=== PATIENT | female | born 1970 | race Caucasian/White ===

== ENCOUNTER → 2016-12-09 | Outpatient (CLI) | payer OTHER | LOC: FIMAGING 14:37 | PROVIDERS: ATTEND Obstetrics & Gynecology | DX: Z12.31 Encounter for screening mammogram for malignant neoplasm of breast (principal) | CPT/HCPCS: G0202 ==

== ENCOUNTER 2017-04-11 15:54 | Inpatient (IN) | payer OTHER ==
[2017-04-11] MEDS ORDERED: ONDANSETRON 4 MG/2 ML VIAL ONE ×2 (16:01→19:14)
[2017-04-11] MEDS ORDERED: fentaNYL 100 MCG/2 ML INJ ONE ×2 (16:01→21:52)
[2017-04-11] MEDS ORDERED: fentaNYL 100 MCG/2 ML INJ IVP ONE (16:03)
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
[2017-04-11] MEDS ORDERED: MIDAZOLAM 2 MG/2 ML VIAL ONE (16:14)
[2017-04-11] MEDS ORDERED: MIDAZOLAM 2 MG/2 ML VIAL IVP ONE (16:26)
[2017-04-11] MEDS ORDERED: ONDANSETRON 4 MG/2 ML VIAL IVP ONE (16:26)
--- NOTE | 2017-04-11 16:42 | PDCONSULT ---
[facility]le [facility] Hand Note: Trauma Service Consult Dictated Seth Shelley MD, FACS
--- NOTE | 2017-04-11 16:57 | ASMTLACE ---
ADEN Acuity / Level of Answers: Yes Care: Did the patient have an inpatient admission? # of Emergency department Answers: 1-2 visits in the last 6 months Score: 4 Date Signed: 04/11/2017 04:57 PM Electronically Signed By:Jolie Gordon RN
[2017-04-11 16:59] LABS: PLATELET COUNT 199 10^3/uL (150-400)
[2017-04-11] MEDS ORDERED: LR 1,000 ML IV SCH (17:30)
[2017-04-11] MEDS ORDERED: NS 1,000 ML IV ONE (17:32)
[2017-04-11] MEDS ORDERED: BUPIVACAINE 0.25% 30 ML SDV ONE (18:47)
[2017-04-11] MEDS ORDERED: CEFAZOLIN 1 GM/DEXTROSE/50 ML BAG IV ONE (19:03)
[2017-04-11] MEDS ORDERED: PROPOFOL 200 MG/20 ML VIAL ONE (19:14)
[2017-04-11] MEDS ORDERED: LIDOCAINE 2% JELLY 5 ML TUBE ONE (19:14)
[2017-04-11] MEDS ORDERED: DEXAMETHASONE 4 MG/ML VIAL ONE ×2 (19:14)
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
--- NOTE | 2017-04-11 20:02 | PDANEPAE ---
ANE Past Medical History - Pulmonary History Hx Oxygen in Use at Home: No Hx Sleep Apnea: No - Endocrine History Hx Diabetes: No Hypothyroid: Yes - GI History GERD: no ANE Review of Systems Review of Systems: - Exercise capacity METS (RN): 6 METS ANE Patient History - Allergies Allergies/Adverse Reactions: Sulfa (Sulfonamide Antibiotics) Allergy (Severe, Verified 04/11/17 17:08) Hives - Home Medications Home Medications: Herbals/Supplements -Info Only 1 ea PO HS 04/11/17 [Last Taken 04/11/17] Levothyroxine [Synthroid 88 mcg (*)] 88 mcg PO HS 04/11/17 [Last Taken 04/10/17] Loratadine [Claritin 10 mg] 10 mg PO HS 04/11/17 [Last Taken 04/10/17] Tretinoin [Retin-A] 1 beatriz TP DAILY PRN 04/11/17 [Last Taken Unknown] l-Norgest/E.estradiol-E.estrad [Amethia Lo Tablet] 1 each PO HS 04/11/17 [Last Taken 04/10/17] - NPO status NPO Since - Liquids (Date): 04/11/17 NPO Since - Liquids (Time): 12:00 NPO Since - Solids (Date): 04/11/17 NPO Since - Solids (Time): 09:00 - Anes Hx Anes Hx: post operative nausea and vomiting - Smoking Hx Smoking Status: Never smoked ANE Labs/Vital Signs - Labs Result Diagrams: 04/11/17 16:40 04/11/17 16:40 - Vital Signs Blood Pressure: 144/90 Heart Rate: 84 Respiratory Rate: 18 O2 Sat (%): 97 Height: 154.94 cm Weight: 61.689 kg ANE Physical Exam - Airway Neck exam: FROM Mallampati Score: Class 2 Mouth exam: normal dental/mouth exam - Pulmonary Pulmonary: no respiratory distress, no rales or rhonchi, clear to auscultation - Cardiovascular Cardiovascular: regular rate and rhythym, no murmur, rub, or gallop - ASA Status ASA Status: II ANE Anesthesia Plan Anesthesia Plan: GA w LMA
[2017-04-11] MEDS ORDERED: MEPERIDINE 25 MG/ML SYR IVP PRN (21:15)
[2017-04-11] MEDS ORDERED: LR 500 ML IV PRN (21:15)
[2017-04-11] MEDS ORDERED: PROMETHAZINE HCL 25 MG/ML INJ IVP PRN (21:15)
[2017-04-11] MEDS ORDERED: OXYCODONE/APAP 5/325 TAB PO PRN (21:15)
[2017-04-11] MEDS ORDERED: NALOXONE HCL 0.4 MG/ML INJ IVP PRN (21:15)
[2017-04-11] MEDS ORDERED: DIAZEPAM 5 MG/ML 1 ML SYR IVP PRN (21:15)
[2017-04-11] MEDS ORDERED: ONDANSETRON 4 MG/2 ML VIAL IVP PRN (21:15)
[2017-04-11] MEDS: fentaNYL 100 MCG/2 ML INJ IVP PRN ×2 (21:52→22:00)
--- NOTE | 2017-04-11 22:00 | POSTANESTH ---
Post Anesthetic Evaluation Cardiovascular Status: Normal, Stable Respiratory Status: Normal, Stable, Similar to Pre-op Cond. Level of Consciousness/Mental Status: Can Participate in Eval, Mildly Sleepy, Arousable Pain Control: Adequate, Prn Tx Ordered Nausea/Vomiting Control: Adequate, Prn Tx Ordered Complications Possibly Related to Anesthesia: None Noted
[2017-04-11] MEDS ORDERED: D5W 1/2 NS W/ 20 KCl/L 1,000 ML IV SCH (22:15)
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
[2017-04-11] MEDS: HYDROCODONE/APAP 5/325 TAB PO PRN (23:17)
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
[2017-04-11] MEDS: LEVOTHYROXINE 88 MCG TAB PO SCH (23:24)
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
[2017-04-12] MEDS ORDERED: ONDANSETRON DISINTEGRATING 4 MG TAB PO PRN (00:30)
[2017-04-12] MEDS: CETIRIZINE 10 MG TAB PO SCH ×2 (02:42→20:28)
[2017-04-12] MEDS: E ESTRADIOL E ESTRAD PO SCH ×2 (02:43→20:28)
[2017-04-12] MEDS: NORGEST PO SCH ×2 (02:43→20:28)
[2017-04-12] MEDS: HYDROCODONE/APAP 5/325 TAB PO PRN ×4 (04:00→20:26)
[2017-04-12] MEDS: ENOXAPARIN 40 MG/0.4 ML SYR SC SCH (08:02)
--- NOTE | 2017-04-12 09:20 | SOAPPROG ---
SOAP Progress Note Assessment/Plan: Assessment: Plan: 04/12/17 09:16 POD 1 pain controlled on PO mobility is a concern PT/OT to visit discharge when mobile. TDWB L leg. walker or crutch 04/12/17 09:20 Subjective: POD1 eating breakfast daughter at bedside Objective: Vital Signs Temp Pulse Resp BP Pulse Ox 36.8 C 82 16 125/81 H 99 04/12/17 07:30 04/12/17 07:30 04/12/17 07:30 04/12/17 07:30 04/12/17 07:30 Laboratory Results 04/11/17 22:30 04/11/17 04/12/17 04/13/17 05:59 05:59 05:59 Intake Total 2400 Output Total 800 Balance 1600 L thigh swollen active TA/GS active heel slide to 10 degrees L thigh soft dressing with slight serosang Xrays L hip today with nice alignment Hardware in place coronal split in proximal anterior femoral shaft looks stable medial calcar and femoral neck look good ICD10 Worksheet Patient Problems: Problems Problem Status Onset Femur fracture, left Acute
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
[2017-04-12] MEDS ORDERED: POLYETHYLENE GLYCOL 3350 17 GM PKT PO PRN (17:31)
[2017-04-12] MEDS ORDERED: LACTULOSE 20 GM/30 ML UDCUP PO PRN (17:31)
[2017-04-12] MEDS ORDERED: BISACODYL 10 MG SUPP PR PRN (17:31)
[2017-04-12] MEDS ORDERED: MAGNESIUM HYDROXIDE 30 ML UDCUP PO PRN (17:31)
--- NOTE | 2017-04-12 18:45 | ASMTCMCOM ---
CM Note CM Note Notes: Pt admitted with L femur fx s/p ORIF. PT recommending Otpt rehab. OT recommending home no needs. Anticipate dc home independently. CM available if needs/changes. Date Signed: 04/12/2017 06:44 PM Electronically Signed By:Pam Ochoa RN
[2017-04-12] MEDS: SENNOSIDES/DOCUSATE SODIUM TAB PO SCH (20:24)
[2017-04-12] MEDS: LEVOTHYROXINE 88 MCG TAB PO SCH (20:24)
[2017-04-13] MEDS: HYDROCODONE/APAP 5/325 TAB PO PRN ×4 (04:57→16:13)
[2017-04-13] MEDS: SENNOSIDES/DOCUSATE SODIUM TAB PO SCH (08:33)
[2017-04-13] MEDS: ENOXAPARIN 40 MG/0.4 ML SYR SC SCH (08:39)
--- NOTE | 2017-04-13 09:52 | SOAPPROG ---
SOAP Progress Note Assessment/Plan: Assessment: Plan: 04/12/17 09:16 POD 1 pain controlled on PO mobility is a concern PT/OT to visit discharge when mobile. TDWB L leg. walker or crutch 04/12/17 09:20 04/13/17 09:50 POD 2 in good spirits home today ASA qd for 10 days heel slides ankle ROM TDWB LLE fu in one week for xrays Subjective: POD 2 daughter at bedside adiel mcdaniel Objective: Vital Signs Temp Pulse Resp BP Pulse Ox 37.1 C 94 15 95/62 L 96 04/13/17 07:37 04/13/17 07:37 04/13/17 07:37 04/13/17 07:37 04/13/17 07:37 Laboratory Results 04/11/17 22:30 04/12/17 04/13/17 04/14/17 05:59 05:59 05:59 Intake Total 2400 1500 Output Total 800 300 Balance 1600 1200 thigh soft and swollen active motion ankle dressing with slight serosang bruising around glute incision no redness abdomen soft ICD10 Worksheet Patient Problems: Problems Problem Status Onset Femur fracture, left Acute
[2017-04-13 12:02] VITALS: RESP 16
[2017-04-13 15:24] VITALS: BP 104/84; PULSE 106; TEMP 98.6; O2SAT 94
== END 2017-04-13 17:24 | disposition home or self-care (01) | DRG 482 ==
LOC: EDBD → EDUNIT# → F3N 22:48
PROVIDERS: ADMIT Surgery; ATTEND Surgery
PROC: BQ14ZZZ Fluoroscopy of Left Femur (ICD-10-PCS; 2017-04-11)
PROC: 0QS906Z Reposition Left Femoral Shaft with Intramedullary Internal Fixation Device, Open Approach (ICD-10-PCS; principal; 2017-04-11 18:30)
DX: S72.352A Displaced comminuted fracture of shaft of left femur, initial encounter for closed fracture (principal); Y93.23 Activity, snow (alpine) (downhill) skiing, snowboarding, sledding, tobogganing and snow tubing; V00.328A Other snow-ski accident, initial encounter; Y92.838 Other recreation area as the place of occurrence of the external cause; E04.9 Nontoxic goiter, unspecified; Z88.2 Allergy status to sulfonamides; R31.21 Asymptomatic microscopic hematuria
CPT/HCPCS: 92523-GN; 96374; 97116-GP; 97161-GP; 97165-GO; 97530-GP; 97535-GO; C1713; J0690; J1100; J1650; J2250; J2270; J2405; J2704; J3010

== ENCOUNTER 2017-05-12 18:30 | Emergency (ER) | payer OTHER ==
[2017-05-12 18:38] VITALS: TEMP 98.4; O2SAT 98
--- NOTE | 2017-05-12 18:51 | EDPHY ---
H & P Time Seen by Provider: 05/12/17 18:50 HPI/ROS: CHIEF COMPLAINT: DVT HISTORY OF PRESENT ILLNESS: Left femur ORIF on 04/11/2017 had ultrasound today showing DVT in the leg. She has some leg cramping over the last couple of days in her surgeon ordered an ultrasound which showed DVT. Leg cramping is not associated with weakness or numbness in the foot or fever or chills. No chest pain or shortness of breath. Symptoms mild. REVIEW OF SYSTEMS: Eye: no change in vision ENT: no sore throat Cardiac: no chest pain or syncope Pulmonary: no cough or SOB Abdomen: No abdominal pain Musculoskeletal: HPI Skin: Residual bruising on the left lateral femur area. Neuro: No weakness or numbness in the left foot Constitutional: no fever : no urinary symptoms A comprehensive 10 point review of systems is otherwise negative aside from elements mentioned in the history of present illness. PAST MEDICAL HISTORY: Thyroid , femur fracture Social history: Here with her daughter General Appearance: Alert and conversant, cooperative. Eyes: No scleral icterus. ENT, Mouth: Normal mucous membranes. Respiratory: Normal respiratory effort, breath sounds equal, lungs are clear to auscultation. Cardiovascular: Regular rate and rhythm. Gastrointestinal: Abdomen is soft and non tender. Neurological: Alert, face symmetric, normal motor and sensory in extremities. Skin: Some left leg and thigh bruising, not new. Musculoskeletal: Compartments are soft in both calves and thigh. Psychiatric: Not agitated. Emergency Department course/MDM: The risk benefit alternatives of anticoagulation with Eliquis discussed and consented. Screening labs, 1 week of medication, primary care referral. Does not have signs or symptoms of compartment syndrome or postoperative infection, or pulmonary embolism. 1924: Creatinine 0.7, 1 week of Eliquis 10 mg p.o. Twice daily and outpatient follow-up. Smoking Status: Never smoked Constitutional: Initial Vital Signs Temperature (C) 36.9 C 05/12/17 18:35 Heart Rate 75 05/12/17 18:35 Respiratory Rate 16 05/12/17 18:35 Blood Pressure 157/97 H 05/12/17 18:35 O2 Sat (%) 98 05/12/17 18:35 O2 Delivery Mode Room Air Allergies/Adverse Reactions: Sulfa (Sulfonamide Antibiotics) Allergy (Severe, Verified 05/12/17 18:33) Hives Home Medications: Medication Instructions Recorded Levothyroxine [Synthroid 88 mcg 88 mcg PO HS 04/11/17 (*)] Loratadine [Claritin 10 mg] 10 mg PO HS 04/11/17 Tretinoin [RETIN-A] 1 beatriz TP DAILY PRN 04/11/17 l-Norgest/E.estradiol-E.estrad 1 each PO HS 04/11/17 [Amethia Lo Tablet] Apixaban [Eliquis] 10 mg PO BID 7 Days tab 05/12/17 Medical Decision Making - Data Points Laboratory Results: Laboratory Results 05/12/17 19:20 05/12/17 19:20 05/12/17 05/12/17 05/12/17 19:24 19:20 19:20 WBC RBC Hgb POC Hgb 13.9 gm/dL gm/dL (12.6-16.3) Hct POC Hct 41 % % (38-47) MCV MCH MCHC RDW Plt Count MPV Neut % (Auto) Lymph % (Auto) Dougherty % (Auto) Eos % (Auto) Baso % (Auto) Nucleat RBC Rel Count Absolute Neuts (auto) Absolute Lymphs (auto) Absolute Monos (auto) Absolute Eos (auto) Absolute Basos (auto) Absolute Nucleated RBC Immature Gran % Immature Gran # PT 13.8 SEC SEC (12.0-15.0) INR 1.04 (0.83-1.16) APTT 27.4 SEC SEC (23.0-38.0) POC Sodium 140 mEq/L mEq/L (135-145) Sodium 136 mEq/L mEq/L (135-145) POC Potassium 3.9 mEq/L mEq/L (3.3-5.0) Potassium 4.3 mEq/L mEq/L (3.5-5.2) POC Chloride 105 mEq/L mEq/L (97-110) Chloride 103 mEq/L mEq/L (97-110) Carbon Dioxide 21 mEq/l L mEq/l (22-31) Anion Gap 12 mEq/L mEq/L (8-16) POC BUN 14 mg/dL mg/dL (7-23) BUN 15 mg/dL mg/dL (7-23) Creatinine 0.7 mg/dL mg/dL (0.6-1.0) POC Creatinine 0.7 mg/dL mg/dL (0.6-1.0) Estimated GFR > 60 Glucose 78 mg/dL mg/dL (70-100) POC Glucose 84 mg/dL mg/dL (70-100) Calcium 8.9 mg/dL mg/dL (8.5-10.4) 05/12/17 19:20 WBC 6.47 10^3/uL 10^3/uL (3.80-9.50) RBC 4.16 10^6/uL L 10^6/uL (4.18-5.33) Hgb 13.0 g/dL g/dL (12.6-16.3) POC Hgb Hct 39.8 % % (38.0-47.0) POC Hct MCV 95.7 fL fL (81.5-99.8) MCH 31.3 pg pg (27.9-34.1) MCHC 32.7 g/dL g/dL (32.4-36.7) RDW 13.8 % % (11.5-15.2) Plt Count 249 10^3/uL 10^3/uL (150-400) MPV 9.7 fL fL (8.7-11.7) Neut % (Auto) 58.0 % % (39.3-74.2) Lymph % (Auto) 31.1 % % (15.0-45.0) Dougherty % (Auto) 6.8 % % (4.5-13.0) Eos % (Auto) 2.9 % % (0.6-7.6) Baso % (Auto) 0.9 % % (0.3-1.7) Nucleat RBC Rel Count 0.0 % % (0.0-0.2) Absolute Neuts (auto) 3.75 10^3/uL 10^3/uL (1.70-6.50) Absolute Lymphs (auto) 2.01 10^3/uL 10^3/uL (1.00-3.00) Absolute Monos (auto) 0.44 10^3/uL 10^3/uL (0.30-0.80) Absolute Eos (auto) 0.19 10^3/uL 10^3/uL (0.03-0.40) Absolute Basos (auto) 0.06 10^3/uL 10^3/uL (0.02-0.10) Absolute Nucleated RBC 0.00 10^3/uL 10^3/uL (0-0.01) Immature Gran % 0.3 % % (0.0-1.1) Immature Gran # 0.02 10^3/uL 10^3/uL (0.00-0.10) PT INR APTT POC Sodium Sodium POC Potassium Potassium POC Chloride Chloride Carbon Dioxide Anion Gap POC BUN BUN Creatinine POC Creatinine Estimated GFR Glucose POC Glucose Calcium Medications Given: Discontinued Medications Apixaban (Eliquis) 10 mg PO EDNOW ONE Stop: 05/12/17 19:10 Last Admin: 05/12/17 19:50 Dose: 10 mg Point of Care Test Results: 05/12/17 19:24 POC Sodium 140 POC Potassium 3.9 POC Chloride 105 POC BUN 14 POC Creatinine 0.7 POC Glucose 84 Departure - Departure Disposition: Home, Routine, Self-Care Clinical Impression: Left leg DVT Qualifiers: Affected thrombotic vein of extremity: unspecified vein of extremity Chronicity : acute Qualified Code(s): I82.402 - Acute embolism and thrombosis of unspecified deep veins of left lower extremity Condition: Good Instructions: Apixaban (By mouth), Deep Vein Thrombosis (ED) Additional Instructions: Please follow-up with Dr. Cunningham or another provider at the [facility] this week. Tell them you are referred for follow-up for a DVT. Referrals: Guero Cunningham MD [[facility] Primary Care Provider] - 2-3 days without fail Prescriptions: Apixaban [Eliquis] 10 mg PO BID 7 Days tab
[2017-05-12] MEDS ORDERED: APIXABAN 5 MG TAB PO ONE (19:09)
[2017-05-12 19:31] LABS: PLATELET COUNT 249 10^3/uL (150-400)
[2017-05-12 19:43] LABS: INR 1.04 (0.83-1.16); PROTIME(PATIENT) 13.8 SEC (12.0-15.0)
[2017-05-12 20:07] VITALS: BP 162/102; PULSE 82; RESP 18
== END 2017-05-12 20:06 | disposition home or self-care (01) ==
DX: I82.402 Acute embolism and thrombosis of unspecified deep veins of left lower extremity (principal)
CPT/HCPCS: 82947-QW

== ENCOUNTER → 2017-05-12 | Outpatient (CLI) | payer OTHER | LOC: FIMAGING 17:22 | PROVIDERS: ATTEND Orthopaedic Surgery | DX: I82.812 Embolism and thrombosis of superficial veins of left lower extremity (principal) ==